=== PATIENT | female | born 1965 | race Caucasian/White ===

== ENCOUNTER 2022-04-07 14:16 | Emergency (ER) | payer BC, OTHER ==
[~2022-04-07] VITALS: Ht 157.5 cm; Wt 59.0 kg
[2022-04-07 15:08] VITALS: BP 141/70
== END 2022-04-07 17:12 | disposition home or self-care (01) ==
LOC: ER 14:16
DX: S00.81XA Abrasion of other part of head, initial encounter (principal); I10 Essential (primary) hypertension; E78.5 Hyperlipidemia, unspecified; W20.8XXA Other cause of strike by thrown, projected or falling object, initial encounter; Y93.89 Activity, other specified; Y92.89 Other specified places as the place of occurrence of the external cause; Y99.8 Other external cause status